=== PATIENT | female | born 1960 | race Caucasian/White ===

== ENCOUNTER 2021-05-23 06:15 | Inpatient (IN) | payer BC, SELFPAY ==
[2021-05-20 08:59] LABS: BASOPHILS # (AUTO) 0.1 K/uL (0.0-0.2); EOSINOPHILS # (AUTO) 0.6 K/uL (0.0-0.4); EOSINOPHILS % (AUTO) 8.4 % (0.0-4.0); HEMATOCRIT 44.2 % (36-48); HEMOGLOBIN 14.7 g/dL (12.0-16.0); LYMPHOCYTES # (AUTO) 1.4 K/uL (1.0-5.5); LYMPHOCYTES % (AUTO) 18.2 % (20.5-51.5); MEAN CORPUSCULAR HEMOGLOBIN 32 pg (27-31); MEAN CORPUSCULAR HGB CONC 33 % (32-36); MEAN CORPUSCULAR VOLUME 97 fL (79.0-98.0); MONOCYTES # (AUTO) 0.6 K/uL (0.0-1.0); MONOCYTES % (AUTO) 8.1 % (1.7-9.3); NEUTROPHILS # (AUTO) 4.8 K/uL (1.8-7.7); NEUTROPHILS % (AUTO) 64.3 % (40.0-70.0); PLATELET COUNT (AUTO) 320 K/uL (130-430); RED BLOOD CELL COUNT(AUTO) 4.58 MIL/uL (4.2-6.2); WHITE BLOOD COUNT (AUTO) 7.5 K/uL (4.8-10.8)
[2021-05-20 09:09] LABS: POTASSIUM 4.3 mmol/L (3.5-5.1)
[2021-05-20 09:24] LABS: INR 0.9 (0.8-1.2); PROTHROMBIN TIME 10.1 SECS (9.5-12.5)
[2021-05-20 09:39] LABS: BILIRUBIN,URINE NEGATIVE (NEGATIVE); BLOOD, URINE NEGATIVE (NEGATIVE); CLARITY/URINE CLEAR (CLEAR); COLOR,URINE YELLOW (YELLOW); GLUCOSE,URINE NEGATIVE (NEGATIVE); KETONES,URINE NEGATIVE (NEGATIVE); LEUKOCYTE ESTERASE ,URINE NEGATIVE (NEGATIVE); NITRITE, URINE NEGATIVE (NEGATIVE); PH,URINE 5.5 (5.0-8.0); PROTEIN URINE NEGATIVE (NEGATIVE); UROBILINOGEN,URINE 0.2 (0.2-1.0)
[~2021-05-23] VITALS: Ht 160 cm; Wt 111.1 kg
[~2021-05-23 06:15] MED LIST: LISI20TA30 PO
[2021-05-23] MEDS ORDERED: POLYMYXIN 500,000/BACIT.10,000 UNITS in NS IRR 1 L IR ONE ×2 (06:59→07:31)
[2021-05-23] MEDS ORDERED: BUPIVACAINE LIPOSOME/PF 266 MG/20 ML VIAL INFIL ONE (06:59)
[2021-05-23] MEDS ORDERED: SITA100T11 PO (07:02)
[2021-05-23] MEDS ORDERED: HYDR25TA4 PO (07:02)
[2021-05-23] MEDS ORDERED: NIFE90TA48 PO (07:02)
[2021-05-23] MEDS ORDERED: OMEP20TA20 PO (07:02)
[2021-05-23] MEDS ORDERED: LISI40TA13 PO (07:02)
[2021-05-23] MEDS ORDERED: IBUP-1970 PO (07:02)
[2021-05-23] MEDS ORDERED: ACETAMINOPHEN I.V. 1000 MG 100 ML IV ONE (07:37)
[2021-05-23] MEDS ORDERED: D5/0.45 NS 1,000 ML IV ONE (07:45)
[2021-05-23] MEDS ORDERED: BISACODYL 10 MG/SUPPOSITORY RC PRN (07:45)
[2021-05-23] MEDS ORDERED: ACETAMINOPHEN 325 MG TABLET PO PRN (07:45)
[2021-05-23] MEDS ORDERED: MEPERIDINE HCL/PF 25 MG/ML DISP.SYRIN IVP PRN (08:45)
[2021-05-23] MEDS ORDERED: LR 1,000 ML IV SCH (08:45)
[2021-05-23] MEDS ORDERED: METOCLOPRAMIDE HCL 10 MG/2 ML VIAL IVP PRN (08:45)
[2021-05-23] MEDS ORDERED: HYDROmorphone 1 MG/ML INJ. CARTRIDGE IVP PRN ×2 (08:45)
[2021-05-23] MEDS ORDERED: KETOROLAC TROMETHAMINE 30 MG VIAL IVP PRN (08:45)
[2021-05-23] MEDS ORDERED: ONDANSETRON HCL 4 MG/2 ML VIAL IVP PRN (08:45)
[2021-05-23] MEDS ORDERED: HYDROmorphone 1 MG/ML INJ. CARTRIDGE IVP ONE (10:25)
[2021-05-23] MEDS ORDERED: HYDROmorphone 1 MG/ML INJ. CARTRIDGE ONE (10:39)
[2021-05-23] MEDS ORDERED: KETOROLAC TROMETHAMINE 30 MG VIAL ONE (10:44)
[2021-05-23 13:03] VITALS: BP_SYST 122
[2021-05-23] MEDS ORDERED: DEXTROSE 50% JECT 50 ML DISP.SYRIN IVP PRN (14:45)
[2021-05-23] MEDS: CEFAZOLIN 1 GM IVPB PREMIX 50 ML IV SCH ×2 (16:21→20:55)
[2021-05-23] MEDS: MORPHINE SULFATE 10 MG/ML VIAL IM PRN ×2 (16:24→20:55)
[2021-05-23] MEDS: INSULIN REGULAR, HUMAN 100 UNITS/ML, 10 ML VIAL (humuLIN R) SUBCUT PRN (17:22)
[2021-05-23 18:18] VITALS: BP_SYST 131
[2021-05-23 20:00] VITALS: BP_SYST 113
[2021-05-24] VITALS: BP_SYST 117
[2021-05-24] MEDS: HYDROcodone/ACETAMIN 7.5-325 MG TAB PO PRN ×5 (00:17→20:59)
[2021-05-24] MEDS: INSULIN REGULAR, HUMAN 100 UNITS/ML, 10 ML VIAL (humuLIN R) SUBCUT PRN ×4 (00:20→17:17)
[2021-05-24 08:00] VITALS: BP_SYST 126
[2021-05-24] MEDS: NIFEDIPINE 90 MG TABLET.SA (PROCARDIA XL 90 MG) PO SCH (08:52)
[2021-05-24] MEDS: MORPHINE SULFATE 10 MG/ML VIAL IM PRN ×4 (08:53→22:46)
[2021-05-24] MEDS: lisinopriL 20 MG TABLET PO SCH (08:56)
[2021-05-24] MEDS: HYDROCHLOROTHIAZIDE 25 MG TABLET (HCTZ) PO SCH (08:56)
[2021-05-24] MEDS: PANTOPRAZOLE SODIUM 40 MG TAB PO SCH (08:56)
[2021-05-24] MEDS: RIVAROXABAN 10 MG TABLET PO SCH (08:57)
[2021-05-24] MEDS ORDERED: OMEPRAZOLE 40 MG PO SCH (09:00)
[2021-05-24 13:07] VITALS: BP_SYST 104
[2021-05-24 20:00] VITALS: BP_SYST 115
[2021-05-25] VITALS: BP_SYST 117
[2021-05-25] MEDS: INSULIN REGULAR, HUMAN 100 UNITS/ML, 10 ML VIAL (humuLIN R) SUBCUT PRN ×3 (00:33→18:34)
[2021-05-25] MEDS: MORPHINE SULFATE 10 MG/ML VIAL IM PRN ×2 (02:27→08:21)
[2021-05-25] MEDS: lisinopriL 20 MG TABLET PO SCH (08:22)
[2021-05-25] MEDS: NIFEDIPINE 90 MG TABLET.SA (PROCARDIA XL 90 MG) PO SCH (08:22)
[2021-05-25] MEDS: PANTOPRAZOLE SODIUM 40 MG TAB PO SCH (08:23)
[2021-05-25] MEDS: HYDROCHLOROTHIAZIDE 25 MG TABLET (HCTZ) PO SCH (08:23)
[2021-05-25] MEDS: RIVAROXABAN 10 MG TABLET PO SCH (08:24)
[2021-05-25 08:25] VITALS: BP_SYST 118
[2021-05-25] MEDS ORDERED: MIDAZOLAM HCL 5 MG/ML VIAL (VERSED) IV ONE (10:10)
[2021-05-25] MEDS ORDERED: fentaNYL CITRATE 250 MCG/5 ML AMP IV ONE (10:10)
[2021-05-25] MEDS ORDERED: ROPIVACAINE HCL/PF 5 MG/ML 0.5% 30 ML VIAL ONE (10:10)
[2021-05-25] MEDS ORDERED: BUPIVACAINE /EPINEPHRINE/PF 0.5% 30 ML VIAL INJ ONE (10:10)
[2021-05-25] MEDS ORDERED: WATER FOR IRRIGATION,STERILE 1,000 ML IRRIG.SOLN IR ONE (10:10)
[2021-05-25] MEDS ORDERED: fentaNYL CITRATE/PF 100 MCG/2 ML AMP IVP ONE (10:10)
[2021-05-25] MEDS ORDERED: PROPOFOL 200MG/ 20ML VIAL (DIPRIVAN) IV ONE (10:10)
[2021-05-25] MEDS ORDERED: DEXAMETHASONE SOD PHOSPHATE 4 MG/ML VIAL ONE (10:10)
[2021-05-25] MEDS ORDERED: LR 1,000 ML IV.SOLN IV ONE (10:10)
[2021-05-25] MEDS ORDERED: NS IRRIG SOLN 1000 ML IR ONE (10:10)
[2021-05-25] MEDS ORDERED: MEPERIDINE 100 MG INJ. 100 MG/ML VIAL ONE (10:10)
[2021-05-25 11:10] LABS: BASOPHILS # (AUTO) 0.1 K/uL (0.0-0.2); BASOPHILS % (AUTO) 0.4 % (0.0-2.0); EOSINOPHILS % (AUTO) 0.2 % (0.0-4.0); HEMATOCRIT 38.9 % (36-48); HEMOGLOBIN 13.4 g/dL (12.0-16.0); LYMPHOCYTES # (AUTO) 0.8 K/uL (1.0-5.5); LYMPHOCYTES % (AUTO) 5.6 % (20.5-51.5); MEAN CORPUSCULAR HEMOGLOBIN 33 pg (27-31); MEAN CORPUSCULAR HGB CONC 35 % (32-36); MEAN CORPUSCULAR VOLUME 96 fL (79.0-98.0); MONOCYTES # (AUTO) 1.3 K/uL (0.0-1.0); MONOCYTES % (AUTO) 9.6 % (1.7-9.3); NEUTROPHILS # (AUTO) 11.6 K/uL (1.8-7.7); NEUTROPHILS % (AUTO) 84.2 % (40.0-70.0); PLATELET COUNT (AUTO) 298 K/uL (130-430); RED BLOOD CELL COUNT(AUTO) 4.04 MIL/uL (4.2-6.2); RED CELL DISTRIBUTION WIDTH 13.1 % (9.0-15.0); WHITE BLOOD COUNT (AUTO) 13.7 K/uL (4.8-10.8)
[2021-05-25 11:15] LABS: CALCIUM 9.5 mg/dL (8.4-11.0); CREATININE 1.72 mg/dL (0.55-1.30); POTASSIUM 4.1 mmol/L (3.5-5.1)
[2021-05-25 11:31] LABS: THYROID STIMULATING HORMONE 2.09 uIu/mL (0.36-3.74); TOTAL BILIRUBIN 1.5 mg/dL (0.0-1.0)
[2021-05-25] MEDS: HYDROcodone/ACETAMIN 7.5-325 MG TAB PO PRN ×3 (11:58→20:03)
[2021-05-25 12:00] VITALS: BP_SYST 105
[2021-05-25 15:32] VITALS: BP_SYST 98
[2021-05-25 19:00] VITALS: BP_SYST 106
[2021-05-25 20:00] VITALS: BP_SYST 109
[2021-05-26 02:08] VITALS: BP_SYST 114
[2021-05-26] MEDS: INSULIN REGULAR, HUMAN 100 UNITS/ML, 10 ML VIAL (humuLIN R) SUBCUT PRN ×2 (06:31→18:14)
[2021-05-26 08:00] VITALS: BP_SYST 97
[2021-05-26] MEDS: HYDROCHLOROTHIAZIDE 25 MG TABLET (HCTZ) PO SCH (09:00)
[2021-05-26] MEDS: NIFEDIPINE 90 MG TABLET.SA (PROCARDIA XL 90 MG) PO SCH (09:00)
[2021-05-26] MEDS: lisinopriL 20 MG TABLET PO SCH (09:00)
[2021-05-26] MEDS: PANTOPRAZOLE SODIUM 40 MG TAB PO SCH (09:47)
[2021-05-26] MEDS: HYDROcodone/ACETAMIN 7.5-325 MG TAB PO PRN (09:48)
[2021-05-26] MEDS: RIVAROXABAN 10 MG TABLET PO SCH (09:48)
[2021-05-26] MEDS: NACL 0.9% 1,000 ML IV SCH ×2 (10:30→18:29)
[2021-05-26 12:00] VITALS: BP_SYST 105
[2021-05-26] MEDS: MORPHINE SULFATE 10 MG/ML VIAL IM PRN ×2 (13:12→23:16)
[2021-05-26 16:00] VITALS: BP_SYST 102
[2021-05-27] VITALS (7 sets, daily range): BP systolic 105–125
[2021-05-27] MEDS: NACL 0.9% 1,000 ML IV SCH ×2 (04:50→16:30)
[2021-05-27] MEDS: NIFEDIPINE 90 MG TABLET.SA (PROCARDIA XL 90 MG) PO SCH (08:34)
[2021-05-27] MEDS: PANTOPRAZOLE SODIUM 40 MG TAB PO SCH (08:34)
[2021-05-27] MEDS: HYDROcodone/ACETAMIN 7.5-325 MG TAB PO PRN ×2 (08:35→13:55)
[2021-05-27] MEDS: RIVAROXABAN 10 MG TABLET PO SCH (08:36)
[2021-05-27] MEDS: INSULIN REGULAR, HUMAN 100 UNITS/ML, 10 ML VIAL (humuLIN R) SUBCUT PRN (11:04)
== END 2021-05-27 19:25 | DRG 470 ==
LOC: SMU 06:15
PROVIDERS: ADMIT Orthopaedic Surgery; ATTEND Orthopaedic Surgery
PROC: 0SRC0J9 Replacement of Right Knee Joint with Synthetic Substitute, Cemented, Open Approach (ICD-10-PCS; principal; 2021-05-23 07:35)
DX: M17.11 Unilateral primary osteoarthritis, right knee (principal); Z68.41 Body mass index [BMI] 40.0-44.9, adult; E11.9 Type 2 diabetes mellitus without complications; I10 Essential (primary) hypertension; M23.41 Loose body in knee, right knee; M25.761 Osteophyte, right knee; Z20.822 Contact with and (suspected) exposure to COVID-19; E66.01 Morbid (severe) obesity due to excess calories; N28.9 Disorder of kidney and ureter, unspecified; Z98.891 History of uterine scar from previous surgery
CPT/HCPCS: 36415; 71046-TC; 80048; 80053; 81003; 82948; 82962; 84443; 85025; 85610-TC; 85730-TC; 87081; 88305; 88311; 93005; 97039; 97110-GP; 97116-GP; 97530-GP; C1713; C1776; C9290; J0131; J0690; J1100; J1170; J1815; J1885; J2175; J2250; J2270; J2704; J3010; J3490; J7120; U0003

== ENCOUNTER 2021-08-08 06:00 | Inpatient (IN) | payer BC, SELFPAY ==
[2021-08-05 09:57] LABS: CALCIUM 10.3 mg/dL (8.4-11.0); CREATININE 1.15 mg/dL (0.55-1.30); POTASSIUM 3.9 mmol/L (3.5-5.1)
[2021-08-05 10:02] LABS: BASOPHILS # (AUTO) 0.1 K/uL (0.0-0.2); BASOPHILS % (AUTO) 0.9 % (0.0-2.0); EOSINOPHILS # (AUTO) 0.5 K/uL (0.0-0.4); EOSINOPHILS % (AUTO) 7.2 % (0.0-4.0); HEMATOCRIT 41.7 % (36-48); HEMOGLOBIN 13.5 g/dL (12.0-16.0); INR 0.9 (0.8-1.2); LYMPHOCYTES # (AUTO) 1.7 K/uL (1.0-5.5); LYMPHOCYTES % (AUTO) 22.7 % (20.5-51.5); MEAN CORPUSCULAR HEMOGLOBIN 30 pg (27-31); MEAN CORPUSCULAR HGB CONC 33 % (32-36); MEAN CORPUSCULAR VOLUME 93 fL (79.0-98.0); MONOCYTES # (AUTO) 0.6 K/uL (0.0-1.0); MONOCYTES % (AUTO) 7.6 % (1.7-9.3); NEUTROPHILS # (AUTO) 4.5 K/uL (1.8-7.7); NEUTROPHILS % (AUTO) 61.6 % (40.0-70.0); PLATELET COUNT (AUTO) 354 K/uL (130-430); PROTHROMBIN TIME 9.5 SECS (9.5-12.5); RED CELL DISTRIBUTION WIDTH 13.9 % (9.0-15.0); WHITE BLOOD COUNT (AUTO) 7.4 K/uL (4.8-10.8)
[2021-08-05 10:32] LABS: BILIRUBIN,URINE NEGATIVE (NEGATIVE); BLOOD, URINE NEGATIVE (NEGATIVE); CLARITY/URINE SL CLOUDY (CLEAR); COLOR,URINE YELLOW (YELLOW); GLUCOSE,URINE NEGATIVE (NEGATIVE); KETONES,URINE TRACE (NEGATIVE); LEUKOCYTE ESTERASE ,URINE 2+ (NEGATIVE); NITRITE, URINE NEGATIVE (NEGATIVE); PH,URINE 5.5 (5.0-8.0); PROTEIN URINE NEGATIVE (NEGATIVE); UROBILINOGEN,URINE 0.2 (0.2-1.0)
[2021-08-05 12:00] LABS: BACTERIA,URINE FEW /HPF (None Seen); RBC,URINE 0-3 /HPF (0-3)
[~2021-08-08] VITALS: Ht 160 cm; Wt 104.3 kg
[~2021-08-08 06:00] MED LIST changes: +HYDR25TA4 PO; +IBUP-1970 PO; +LISI40TA13 PO; +NIFE90TA48 PO; +OMEP20TA20 PO; +SITA100T11 PO
[2021-08-08] MEDS ORDERED: BUPIVACAINE LIPOSOME/PF 266 MG/20 ML VIAL INFIL ONE (07:06)
[2021-08-08] MEDS ORDERED: LIDOCAINE 1% 10 MG/ML, 20 ML MDV INJ ONE (07:15)
[2021-08-08] MEDS ORDERED: ePHEDrine sulfate 50 MG/ML VIAL IVP ONE (07:15)
[2021-08-08] MEDS ORDERED: NS 250 ML BAG IV ONE (07:15)
[2021-08-08] MEDS ORDERED: NS IRRIG SOLN 1000 ML IR ONE (07:15)
[2021-08-08] MEDS ORDERED: BUPIVACAINE /EPINEPHRINE/PF 0.5% 30 ML VIAL INJ ONE (07:15)
[2021-08-08] MEDS ORDERED: MORPHINE SULFATE 10 MG/ML VIAL IVP ONE (07:15)
[2021-08-08] MEDS ORDERED: WATER FOR IRRIGATION,STERILE 1,000 ML IRRIG.SOLN IR ONE (07:15)
[2021-08-08] MEDS ORDERED: TRANEXAMIC ACID 1,000 MG/10 ML VIAL IV ONE (07:15)
[2021-08-08] MEDS ORDERED: NS 50 ML BAG IV ONE (07:15)
[2021-08-08] MEDS ORDERED: MIDAZOLAM HCL 5 MG/5 ML VIAL IVP ONE (07:15)
[2021-08-08] MEDS ORDERED: PROPOFOL 200MG/ 20ML VIAL (DIPRIVAN) IV ONE (07:15)
[2021-08-08] MEDS ORDERED: ONDANSETRON HCL 4 MG/2 ML VIAL IVP ONE (07:15)
[2021-08-08] MEDS ORDERED: BUPIVACAINE /PF 0.25% 30 ML VIAL INJ ONE (07:15)
[2021-08-08] MEDS ORDERED: D5/0.45 NS 1,000 ML IV ONE (07:30)
[2021-08-08] MEDS ORDERED: BISACODYL 10 MG/SUPPOSITORY RC PRN (07:30)
[2021-08-08] MEDS ORDERED: ACETAMINOPHEN 325 MG TABLET PO PRN (07:30)
[2021-08-08] MEDS ORDERED: CEFAZOLIN 1 GM IVPB PREMIX 50 ML IV SCH (07:30)
[2021-08-08] MEDS ORDERED: NIFE-34 PO (07:34)
[2021-08-08] MEDS ORDERED: OMEP40CA20 PO (07:34)
[2021-08-08] MEDS ORDERED: METF-518 PO (07:34)
[2021-08-08] MEDS ORDERED: IBUP-1970 PO (07:34)
[2021-08-08] MEDS ORDERED: ACET-73 PO (07:34)
[2021-08-08] MEDS ORDERED: HYDR25TA4 PO (07:34)
[2021-08-08] MEDS ORDERED: LISI40TA13 PO (07:34)
[2021-08-08] MEDS ORDERED: CEPH250C PO (07:34)
[2021-08-08] MEDS ORDERED: LR 1,000 ML IV SCH (08:45)
[2021-08-08] MEDS ORDERED: HYDROmorphone 1 MG/ML INJ. CARTRIDGE IVP PRN ×2 (08:45)
[2021-08-08] MEDS ORDERED: METOCLOPRAMIDE HCL 10 MG/2 ML VIAL IVP PRN (08:45)
[2021-08-08] MEDS ORDERED: MIDAZOLAM HCL 2 MG/2 ML VIAL (VERSED) IVP PRN (08:45)
[2021-08-08] MEDS ORDERED: MEPERIDINE HCL/PF 25 MG/ML DISP.SYRIN IVP PRN (08:45)
[2021-08-08] MEDS: HYDROmorphone 2 MG/ML VIAL ONE ×5 (10:15→10:35)
[2021-08-08] MEDS ORDERED: ALBUMIN HUMAN 5% 250 ML IV ONE ×2 (10:30)
--- NOTE | 2021-08-08 11:30 | NUR ---
PATIENT IN BED, TRANSFERED FROM PACU IN BED, NO S/S OF DISTRESS, DRESSING CLEAN DRY AND INTACT ON LEFT LEG, ICE MACHINE ON LEFT LEG, PATIENT STATES SHE DOES NOT HAVE PAIN AT THIS TIME, BED IN LOWEST LOCKED POSITION, CALL LIGHT WITHIN REACH, VITALS ARE STABLE, ESPINAL DRAINING CLEAR YELLOW URINE, WILL CONTINUE TO MONITOR.
--- NOTE | 2021-08-08 11:48 | NUR ---
CONSULTATION PAGED REASON FOR CONSULTATION:HOSPITALIST WAS CONSULT CALED?Y PERSON WHO WAS NOTIFIED:SUZANNE CONSULTING PHYSICIAN:BROOKLYN HAYDEN SPECIAL EDUCATION RESOURCE TEACHER SPECIALTY:INTERNAL MEDICINE SPECIAL EDUCATION RESOURCE TEACHER PHONE NUMBER:[phone] REQUESTING PHYSICIAN:JENNIFER PRAJAPATI
[2021-08-08] MEDS: CEFAZOLIN 1 GM IVPB PREMIX 50 ML IV SCH ×2 (12:52→19:56)
[2021-08-08 14:00] VITALS: BP_SYST 128
[2021-08-08] MEDS: HYDROcodone/ACETAMIN 7.5-325 MG TAB PO PRN ×2 (14:50→19:57)
--- NOTE | 2021-08-08 19:33 | NUR ---
ENDORSED CONTINUATION OF CARE TO COMMUNITY SPORTS COORDINATOR, CPM IN PLACE AND EDUCATED NURSE TO TAKE OFF AT 2200.
[2021-08-08 20:00] VITALS: BP_SYST 146
--- NOTE | 2021-08-08 22:00 | NUR ---
ROUNDING NOTES Patient resting in bed - no s/s pain or distress noted. Respirations even and unlabored - head of bed elevated. IV site patent - no s/s redness, infection, or infiltration. Bed locked and in lowest position. Call light within reach - bed alarm on.
[2021-08-09 00:22] VITALS: BP_SYST 123
[2021-08-09] MEDS: HYDROcodone/ACETAMIN 7.5-325 MG TAB PO PRN ×6 (01:55→23:46)
--- NOTE | 2021-08-09 01:56 | NUR ---
NORCO 7.5 GIVEN AT 2356 RN REALIZED [facility] DID NOT RECORD ADMINISTRATION TIME. THIS NOTE IS TO STATE THAT AT 2356 NORCO WAS LAST GIVEN, AND NOT AT APPROXIMATELY THIS HOUR
--- NOTE | 2021-08-09 05:14 | NUR ---
Nutrition Update Messi Scale 17 noted. Pt admitted for Unilateral Primary Osteoarthritis, left knee Diet: Regular BMI: 40.7 kg/m2 RD to follow per nutrition care standards.
--- NOTE | 2021-08-09 07:58 | NUR ---
ORTHO MD DR VERDUGO WAS CALLED, RE: PAIN MEDICATION. SPOKE TO CHELLY
--- NOTE | 2021-08-09 08:26 | NUR ---
SPOKE WITH DR VERDUGO AND NOTIFIED OF PATIENT PAIN IS INTOLERABLE BUT DOES NOT WANT TO TAKE THE MORPHINE 10MG IM BUT THE NORCO 7.25 HAS BEEN INEFFECTIVE, ORDERED TO REEDUCATE PATIENT AND GIVE THE MORPHINE 10MG IM FOR UNCONTROLLED PAIN AND TO ORDER PHENERGAN 50MG IM Q3 PRN FOR PAIN CONTROL, CONTACTED PHARMACY TO VERIFY DOSING FOR ORDER, PHARMACIST STATED PHENERGAN IS BANNED AT [facility] DUE TO INCREASED SIDE EFFECTS. CALLED DR VERDUGO TO NOTIFY HIM, AWAITING CALL BACK.
--- NOTE | 2021-08-09 08:50 | NUR ---
PHYSICAL THERAPY TREATMENT WILL BE ATTEMPTED LATER AFTER PATIENT RECEIVES PAIN MEDICATION. RN IS IN AGREEMENT.
[2021-08-09] MEDS: MORPHINE SULFATE 10 MG/ML VIAL IM PRN ×2 (09:20→20:39)
--- NOTE | 2021-08-09 09:34 | NUR ---
Discharge Planning: DCP faxed pt referral for DME-CPM to [facility] (P [phone]) DCP to follow up. Addendum: 08/09/21 at 1035 by Yamila Chahal DP DCP faxed home health referral to [facility] [phone]. Mariano from [facility] (P [phone]) is verifying insurance benefits. JOSEP to follow up Addendum: 08/09/21 at 1553 by Yamila Chahal DP DCP followed up on pt referral to [facility] P [phone] per November not contracted. Mariano from [facility] (P [phone]) will call spouse at arrange delivery time for CPM. DCP faxed pt referral to [facility] [phone] DCP to follow up. Addendum: 08/09/21 at 1603 by Yamila BARRON Aylin [phone] not contracted with insurance, DCP faxed to [facility] and [facility] DCP to follow up.
[2021-08-09] MEDS ORDERED: DEXTROSE 50% JECT 50 ML DISP.SYRIN IVP PRN (10:30)
[2021-08-09 10:58] LABS: BASOPHILS % (AUTO) 0.3 % (0.0-2.0); EOSINOPHILS % (AUTO) 0.1 % (0.0-4.0); HEMOGLOBIN 12.4 g/dL (12.0-16.0); LYMPHOCYTES # (AUTO) 0.5 K/uL (1.0-5.5); LYMPHOCYTES % (AUTO) 4.9 % (20.5-51.5); MEAN CORPUSCULAR HEMOGLOBIN 30 pg (27-31); MEAN CORPUSCULAR HGB CONC 33 % (32-36); MEAN CORPUSCULAR VOLUME 90 fL (79.0-98.0); MONOCYTES # (AUTO) 0.9 K/uL (0.0-1.0); MONOCYTES % (AUTO) 8.3 % (1.7-9.3); NEUTROPHILS # (AUTO) 9.6 K/uL (1.8-7.7); NEUTROPHILS % (AUTO) 86.4 % (40.0-70.0); PLATELET COUNT (AUTO) 294 K/uL (130-430); RED BLOOD CELL COUNT(AUTO) 4.11 MIL/uL (4.2-6.2); RED CELL DISTRIBUTION WIDTH 13.5 % (9.0-15.0); WHITE BLOOD COUNT (AUTO) 11.1 K/uL (4.8-10.8)
--- NOTE | 2021-08-09 11:04 | NUR ---
provided morphine 10mg IM, patient tolerated well, no assessed effectiveness and pain level is at a 5/10 and patient states it is tolerable, will continue to monitor.
[2021-08-09 11:18] LABS: CALCIUM 10.1 mg/dL (8.4-11.0); CREATININE 0.89 mg/dL (0.55-1.30); POTASSIUM 3.9 mmol/L (3.5-5.1)
[2021-08-09 11:21] LABS: ALBUMIN 3.3 g/dL (3.4-4.8); TOTAL BILIRUBIN 1.4 mg/dL (0.0-1.0)
[2021-08-09 11:35] VITALS: BP_SYST 155
[2021-08-09] MEDS: INSULIN REGULAR, HUMAN 100 UNITS/ML, 10 ML VIAL (humuLIN R) SUBCUT PRN ×2 (12:43→18:04)
--- NOTE | 2021-08-09 13:30 | NUR ---
patient provided norco for pain of 6/10, will monitor for effectiveness. called PT to ask if they want to work with patient and put her back on the CPM, stated they will come to work with her right now.
--- NOTE | 2021-08-09 14:30 | NUR ---
patient tolerated PT well and is back on CPM, stated her pain decreased from the movement.
[2021-08-09 15:31] VITALS: BP_SYST 142
--- NOTE | 2021-08-09 17:59 | NUR ---
PATIENT PROVIDED KEMMERER FOR PAIN, PATIENT STATES PAIN IS BETTER WHEN SHE IS USING THE CPM MACHINE, CPM IS IN PLACE AT THIS TIME
--- NOTE | 2021-08-09 19:14 | NUR ---
PATIENT IN BED, NO S/S OF DISTRESS, TOLERATING CARE, CPM IN PLACE TO BE TAKEN OFF TONIGHT AT 1030, TOLERABLE PAIN AT THIS TIME, DRESSING CLEAN DRY AND INTACT ON LEFT KNEE, ENDORSED CONTINUATION OF CARE TO LUNCHEONETTE OPERATOR.
--- NOTE | 2021-08-09 19:45 | NUR ---
INITIAL NOTES PT IS AWAKE PAIN IS TOLERABLE,CPM MACHINE ON,POLAR CARE ON,VITAL SIGN STABLE,ASSESSMENT COMPLETED, PT IS ABLE TO ABDUCT AND ADDUCT HER TOES , ABLE TO FEEL THE TOUCH, NO COMPLAINTS OF ANY NUMBNESS OR TINGLING,ESPINAL CATHETER IS DRAINING YELLOW COLOR URINE TO GRAVITY.BED IN LOW AND LOCK POSITION.CALL GRAY IN REACH,WILL CONTINUE TO MONITOR PT.
[2021-08-09 20:00] VITALS: BP_SYST 142
--- NOTE | 2021-08-09 20:40 | NUR ---
PAIN PT IS COMPLAINING SEVERE PAIN TO THE LEFT KNEE,PT IS REQUESTING TO REMOVE THE CPM MACHINE. EDUCATED THE PT THE NEED FOR KEEPING THE CPM, PT STATED "PAIN IS REALLY BAD AND CANNOT TOLERATE IT PLEASE TAKE IT OUT NOW".WITH ANOTHER RNS HELPED REMOVED CPM MACHINE AND PLACED PILLOW UNDER THE HEEL. MEDICATED WITH MORPHINE PER ORDER.
--- NOTE | 2021-08-09 23:47 | NUR ---
PAIN PT STILL HAS MODERATE PAIN MEDICATED WITH NORCO PER ORDER
[2021-08-10 00:44] VITALS: BP_SYST 156
--- NOTE | 2021-08-10 00:50 | NUR ---
RN NOTES: PT IS SLEEPING , NOT IN ANY ACUTE DISTRESS; RESPIRATION IS EVEN AND NON LABORED , WILL CONTINUE TO MONITOR PT .
[2021-08-10] MEDS: HYDROcodone/ACETAMIN 7.5-325 MG TAB PO PRN ×2 (04:06→11:15)
--- NOTE | 2021-08-10 04:10 | NUR ---
PAIN PT C/O MODERATE PAIN ,MEDICATED WITH NORCO PER ORDER
[2021-08-10] MEDS: INSULIN REGULAR, HUMAN 100 UNITS/ML, 10 ML VIAL (humuLIN R) SUBCUT PRN ×2 (06:12→11:33)
--- NOTE | 2021-08-10 06:36 | NUR ---
WENT TO PT ROOM TO D/C THE F/C BUT SHE SAID " TAKE IT OFF WHEN SHE IS AWAKE",WILL ENDORSE TO THE NEXT SHIFT
--- NOTE | 2021-08-10 07:28 | NUR ---
PHYSICAL THERAPY CO-SIGN The Physical Therapy Progress Notes documented by Gravity Flow Irrigator have been reviewed. Reviewed/Co-Signed by: Abelardo Bradley Documentation Done by: TREMAINE GUILLORY PTA Addendum: 08/10/21 at 0729 by Abelardo Bradley PT Amended: Links added.
--- NOTE | 2021-08-10 07:40 | NUR ---
CLOSING NOTES: PT IS SLEEPING ,NOT IN ANY ACUTE DISTRESS; REPORT GIVEN TO RN AT BEDSIDE . ENDORSED RN TO DC ESPINAL CATH LATER WHEN PT IS AWAKE SINCE PT REFUSED TO DO IT EARLIER .
[2021-08-10 08:46] VITALS: BP_SYST 143
[2021-08-10] MEDS ORDERED: NIFEDIPINE 90 MG PO SCH (09:00)
[2021-08-10] MEDS ORDERED: HYDROCHLOROTHIAZIDE 25 MG TABLET (HCTZ) PO SCH ×2 (09:00)
[2021-08-10] MEDS ORDERED: lisinopriL 20 MG TABLET PO SCH (09:00)
[2021-08-10] MEDS ORDERED: OMEPRAZOLE 40 MG PO SCH (09:00)
[2021-08-10] MEDS ORDERED: PANTOPRAZOLE SODIUM 40 MG TAB PO SCH (09:00)
[2021-08-10] MEDS ORDERED: NIFEDIPINE 90 MG TABLET.SA (PROCARDIA XL 90 MG) PO SCH (09:00)
[2021-08-10] MEDS: MORPHINE SULFATE 10 MG/ML VIAL IM PRN ×2 (09:11→15:22)
[2021-08-10 11:25] VITALS: BP_SYST 138
--- NOTE | 2021-08-10 13:22 | NUR ---
Discharge Planning: [facility] confirmed home health [facility] P [phone], [facility] will deliver CPM to home. Addendum: 08/10/21 at 1326 by Yamila Chahal DP Disposition 06
--- NOTE | 2021-08-10 14:00 | NUR ---
NURSING NOTES: [phone] 0710AM: PATIENT IS RESTING IN BED QUIETLY. REFUSES F/C REMOVAL AT THIS TIME. PER PATIENT, SHE WANTS TO SLEEP BECAUSE ALL NIGHT SHE WAS IN PAIN AND COULDN'T SLEEP. BED IN LOW AND LOCK POSITION. BED ALARM ON. CALL LIGHT WITHIN REACH. STABLE CONDITION AT THIS TIME. WILL CONT TO MONITOR. 0800AM: EXPLAINED POC AND PATIENT VERBALIZED UNDERSTANDING. REFUSED FC REMOVAL. PER PATIENT SHE WANTS IT REMOVED AFTER EATING BREAKFAST. CPM APPLIED TO LLE. NO ADDITIONAL DISTRESS NOTED. WILL CONT TO MONITOR. 0845AM: DR VERDUGO AT THE BEDSIDE AND STATED TO COVER THE L KNEE WITH 4X4 GAUZE AND TAPE. PATIENT WILL BE DC HOME TODAY WITH HH. MADE AWARE TO MD REGARDING PATIENT'S C/O CONSTANT PAIN. NO NEW ORDER AT THIS TIME. 0911AM: IM MORPHINE 10MG GIVEN DUE TO PAIN 04/05 TO L KNEE. AT THE BEDSIDE. WILL CONT TO MONITOR. 0915AM: DRESSING CHANGE TO L KNEE WITH 4X4 STERILE GAUZE AND COVER WITH TEGADERM. 0930AM: LEFT THE UNIT. PHYSICAL THERAPY AT THE BEDSIDE. 1011AM: REASSESSED PAIN- 10. 1130AM: FC REMOVED. NOTED 600ML OF CLEAR ALFONSO URINE. TOLERATED WELL. WILL MONITOR FOR VOIDING. 1200PM: PATIENT IS RESTING IN BED TRYING TO EAT HER LUNCH. NO ADDITIONAL DISTRESS NOTED. 1400: PATIENT IS RESTING IN BED, VOIDED A LARGE AMOUNT OF URINE USING A BEDPAN. STILL ON THE CMP AT THIS TIME. TOLERATED WELL. WILL CONT TO MONITOR
--- NOTE | 2021-08-10 14:30 | NUR ---
PAGED DR VERDUGO PAGED DR VERDUGO FOR DC ORDER FOR TODAY. AWAITING FOR CALL BACK.
[2021-08-10 15:32] VITALS: BP_SYST 137
[2021-08-10] MEDS ORDERED: HYDR-3927 PO (15:55)
[2021-08-10 16:32] VITALS: BP_SYST 137
--- NOTE | 2021-08-10 17:00 | NUR ---
NURSING NOTES [phone] 1500: PATIENT IS RESTING IN BED. NO ADDITIONAL DISTRESS NOTED. WILL CONT TO MONITOR. 1522: GAVE MORPHINE 10MG IM DUE TO L KNEE ARTHROPLASTY 04/05. NO ADDITIONAL DISTRESS NOTED. WILL CONT TO MONITOR. 1552: RECHECK PAIN STATUS 12/04 TO L KNEE. 1600: PATIENT IS RESTING IN BED, ASLEEP. WILL CONT TO MONITOR. 1630: PATIENT IS CALLING HER TO BRING HER PERSONAL W/C FOR DC HOME TODAY. 1650: AT THE BEDSIDE. EXPLAINED DC INSTRUCTIONS TO PATIENT AND . BOTH VERBALIZED UNDERSTANDING. IV TO THE RH REMOVED. IV CATH INTACT WHEN REMOVED. COVER SITE WITH GAUZE AND SECURE WITH TAPE. NO BLEEDING NOTED. PAIN TO LEFT KNEE 3/10 TOLERATED WELL AT THIS TIME. NO ADDITIONAL DISTRESS NOTED. ALL PERSONAL BELONGINGS GIVEN TO PATIENT AND DENIES MISSING ITEMS. 1700: WHEELED OUT THE PATIENT IN A STABLE CONDITION ACCOMPANIED BY PRIMARY NURSE, RETORT OPERATOR, AND . NO ADDITIONAL DISTRESS NOTED.
--- NOTE | 2021-08-11 07:04 | NUR ---
PHYSICAL THERAPY CO-SIGN The Physical Therapy Progress Notes documented by Mac Artist have been reviewed. Reviewed/Co-Signed by: Abelardo Bradley Documentation Done by: TREMAINE GUILLORY PTA Addendum: 08/11/21 at 0705 by Abelardo Bradley PT Amended: Links added.
--- NOTE | 2021-08-11 07:04 | NUR ---
PHYSICAL THERAPY CO-SIGN The Physical Therapy Progress Notes documented by Cancer Registry Coordinator have been reviewed. Reviewed/Co-Signed by: Abelardo Bradley Documentation Done by: TREMAINE GUILLORY PTA Addendum: 08/11/21 at 0705 by Abelardo Bradley PT Amended: Links added.
== END 2021-08-10 17:00 | disposition home health service (06) | DRG 470 ==
LOC: SMU 06:00
PROVIDERS: ADMIT Orthopaedic Surgery; ATTEND Orthopaedic Surgery
PROC: 0SRD0J9 Replacement of Left Knee Joint with Synthetic Substitute, Cemented, Open Approach (ICD-10-PCS; principal; 2021-08-08 07:28)
DX: M17.12 Unilateral primary osteoarthritis, left knee (principal); Z68.41 Body mass index [BMI] 40.0-44.9, adult; E11.9 Type 2 diabetes mellitus without complications; I10 Essential (primary) hypertension; Z20.822 Contact with and (suspected) exposure to COVID-19; G89.29 Other chronic pain; E66.01 Morbid (severe) obesity due to excess calories; F12.90 Cannabis use, unspecified, uncomplicated; Z96.651 Presence of right artificial knee joint; Z98.891 History of uterine scar from previous surgery
CPT/HCPCS: 36415; 71046-TC; 80048; 80053; 81000; 82962; 85025; 85610-TC; 85730-TC; 87081; 88305; 88311; 97039; 97110-GP; 97116-GP; 97163-GP; 97530-GP; C1713; C1776; C9290; J0690; J1170; J2001; J2250; J2270; J2405; J2704; J3490; J7050; P9041; U0003